=== PATIENT | female | born 1950 | race Caucasian/White ===

== ENCOUNTER 2018-05-22 17:45 | Inpatient (IN) ==
[2018-05-22] MEDS ORDERED: ONDANSETRON 4 MG/2 ML VIAL IV STA (18:05)
[2018-05-22] MEDS ORDERED: SODIUM CHLORIDE 0.9% 1,000 ML IV STA ×2 (18:05→19:45)
[2018-05-22] MEDS ORDERED: KETOROLAC 30 MG/1 ML VIAL IV STA (18:25)
[2018-05-22 18:56] LABS: Alanine Aminotransferase 13 U/L (13-56); Albumin 2.8 G/DL (3.4-5.0); Alkaline Phosphatase 58 U/L (45-117); Aspartate Amino Transferase 15 U/L (0-37); Bilirubin,Total < 0.39 MG/DL (0.2-1.0); Blood Urea Nitrogen 21 MG/DL (7-18); Calcium 8.9 MG/DL (8.5-10.1); Glucose 161 MG/DL (74-106); Osmolality,Calculated 275.1 MOS/KG (273-304); Potassium 3.6 MMOL/L (3.5-5.1); Sodium 135 MMOL/L (136-145); Total Protein 6.8 G/DL (6.4-8.3)
[2018-05-22 19:30] LABS: Basophils # 0.1 10*3/uL (0.0-0.2); Basophils % 0.3 % (0.0-0.8); Eosinophils # 0.3 10*3/uL (0.0-0.87); Eosinophils % 1.4 % (0.00-10.9); Hematocrit 40.6 VOL% (35.7-47.0); Hemoglobin 13.2 GM/DL (12.0-16.0); Immature Granulocytes % 0.4 %; Immature Granulocytes Absolute 0.08 #; Lymphocytes # 4.3 10*3/uL (1.4-4.0); Lymphocytes % 20.3 % (21.3-54.2); Mean Corpuscular HGB Conc 32.5 GM/DL (32-36); Mean Corpuscular Hemoglobin 29 PG (27-34); Mean Corpuscular Volume 90.2 FL (87-102); Mean Platelet Volume 10.6 FL (9.6-12.0); Monocytes % 4.5 % (1.7-12.7); Neutrophils # 15.5 10*3/uL (1.4-7.4); Neutrophils % 73.1 % (38.7-73.9); Platelet Count 358 T/CUMM (130-400); Red Cell Distribution Width 13.2 % (9.3-17.3); White Blood Count 21.2 T/CUMM (4-12)
[2018-05-22] MEDS ORDERED: VANCOMYCIN INJ 1,000 MG in SODIUM CHLORIDE 0.9% 250 ML IV STA (19:46)
[2018-05-22] MEDS ORDERED: CEFEPIME 2,000 MG in SODIUM CHLORIDE 0.9% 100 ML IV STA (19:47)
[2018-05-22] MEDS ORDERED: CEFEPIME 2,000 MG VIAL ONE (19:54)
[2018-05-22] MEDS ORDERED: DEXTROSE 50% 25 GM/50 ML VIAL IV PRN (19:55)
[2018-05-22] MEDS ORDERED: ACETAMINOPHEN 325 MG TABLET PO PRN (19:55)
[2018-05-22] MEDS ORDERED: GLUCAGON 1 MG VIAL IM PRN (19:55)
[2018-05-22] MEDS ORDERED: ONDANSETRON 4 MG/2 ML VIAL IV PRN (19:55)
[2018-05-22 19:58] LABS: Band Neutrophils 5 % (0-10); Eosinophils 2 % (0-10); Lymphocytes 22 % (20-55); Segmented Neutrophils 67 % (50-85); Total Cells Counted 100
[2018-05-22 20:00] LABS: Platelet Estimate Normal
[2018-05-22] MEDS ORDERED: MAGNESIUM SULF RIDER 1 GM in PREMIX 1 EACH IV STA (20:18)
[2018-05-22] MEDS: ZALEPLON 5 MG CAPSULE PO SCH (23:36)
[2018-05-22] MEDS: SODIUM CHLORIDE 0.9% 1,000 ML IV SCH (23:36)
[2018-05-22] MEDS: DOCUSATE SODIUM 100 MG CAPSULE PO SCH (23:36)
[2018-05-23] MEDS ORDERED: cefTRIAXone 500 MG in SYRINGE 1 EACH IV SCH
[2018-05-23] MEDS: SODIUM CHLORIDE 0.9% 1,000 ML IV SCH ×3 (01:31→17:14)
[2018-05-23 04:54] LABS: Apearance,Urine CLOUDY (Clear); Bacteria,Urine Occasional /HPF (Few); Bilirubin,Urine Negative (Negative); Blood, Urine Negative (Negative); Glucose,Urine (UA) Negative (Negative); Ketones,Urine Negative (Negative); Mucus,Urine Occasional /LPF (Occasional); Nitrite,Urine Positive (Negative); Protein,Urine Negative; RBC,Urine 2 /HPF (0-4); Squamous Epithelial Cell,Urine Many /HPF (0-10); Urine Specific Gravity 1.023 (1.001-1.035)
[2018-05-23 04:55] LABS: Hyaline Casts,Urine 7 /LPF (0-3); WBC,Urine 2 /HPF (0-6)
[2018-05-23 05:00] LABS: Urine Color Orange (Yellow)
[2018-05-23 05:01] LABS: Alanine Aminotransferase 12 U/L (13-56); Albumin 2.5 G/DL (3.4-5.0); Alkaline Phosphatase 52 U/L (45-117); Aspartate Amino Transferase 9 U/L (0-37); Bilirubin,Total < 0.39 MG/DL (0.2-1.0); Blood Urea Nitrogen 20 MG/DL (7-18); Calcium 8.2 MG/DL (8.5-10.1); Glucose 134 MG/DL (74-106); Potassium 3.8 MMOL/L (3.5-5.1); Sodium 136 MMOL/L (136-145); Total Protein 6.2 G/DL (6.4-8.3)
[2018-05-23 05:27] LABS: Basophils # 0.1 10*3/uL (0.0-0.2); Basophils % 0.4 % (0.0-0.8); Eosinophils # 0.2 10*3/uL (0.0-0.87); Eosinophils % 1.3 % (0.00-10.9); Hematocrit 33.7 VOL% (35.7-47.0); Hemoglobin 10.9 GM/DL (12.0-16.0); Immature Granulocytes % 0.4 %; Immature Granulocytes Absolute 0.07 #; Lymphocytes # 4.1 10*3/uL (1.4-4.0); Lymphocytes % 25.4 % (21.3-54.2); Mean Corpuscular HGB Conc 32.3 GM/DL (32-36); Mean Corpuscular Hemoglobin 29 PG (27-34); Mean Corpuscular Volume 90.8 FL (87-102); Mean Platelet Volume 10.3 FL (9.6-12.0); Monocytes # 0.9 10*3/uL (0.11-0.8); Monocytes % 5.3 % (1.7-12.7); Neutrophils # 10.9 10*3/uL (1.4-7.4); Neutrophils % 67.2 % (38.7-73.9); Platelet Count 310 T/CUMM (130-400); Red Blood Count 3.71 MC/CUMM (3.8-5.5); Red Cell Distribution Width 13.2 % (9.3-17.3); White Blood Count 16.2 T/CUMM (4-12)
[2018-05-23] MEDS ORDERED: MAGNESIUM SULF RIDER 2 GM in PREMIX 1 EACH IV PRN (06:19)
[2018-05-23 08:07] LABS: Hepatitis A Ab IgM Quant 0.15 Index; Hepatitis A Ab IgM Result Negative (Negative); Hepatitis B Core IgM Quant 0.09 Index; Hepatitis B Core IgM Result Negative (Negative); Hepatitis B Surface Ag Quant < 0.10 Index; Hepatitis B Surface Ag Result Negative (Negative); Hepatitis C Virus Ab Quant < 0.02 Index; Hepatitis C Virus Ab Result Negative (Negative)
[2018-05-23] MEDS: DOCUSATE SODIUM 100 MG CAPSULE PO SCH ×2 (08:29→20:49)
[2018-05-23] MEDS: CIPROFLOXACIN INJ 400 MG in PREMIX 1 EACH IV SCH ×2 (08:35→20:49)
[2018-05-23] MEDS: PANTOPRAZOLE 40 MG TABLET PO SCH ×2 (08:45→20:49)
[2018-05-23] MEDS ORDERED: tiZANidine 4 MG TABLET PO PRN (09:00)
[2018-05-23] MEDS ORDERED: FUROSEMIDE 40 MG TABLET PO SCH (09:00)
[2018-05-23] MEDS ORDERED: PANTOPRAZOLE 40 MG TABLET PO SCH (09:00)
[2018-05-23] MEDS: MAGNESIUM CHLORIDE 64 MG TABLET PO SCH (09:33)
[2018-05-23] MEDS: LEVOTHYROXINE 88 MCG TABLET PO SCH (09:33)
[2018-05-23] MEDS: ENOXAPARIN 40 MG/0.4 ML SYRINGE SUBCUT SCH (09:33)
[2018-05-23] MEDS: HYDROmorphone 2 MG/1 ML VIAL SUBCUT PRN ×2 (09:35→20:09)
[2018-05-23] MEDS: metroNIDAZOLE INJ 500 MG in PREMIX 1 EACH IV SCH ×2 (09:45→16:10)
[2018-05-23] MEDS: tiZANidine 4 MG TABLET PO PRN (20:10)
[2018-05-23] MEDS: ZALEPLON 5 MG CAPSULE PO SCH (20:49)
[2018-05-23] MEDS: AMITRIPTYLINE 100 MG TABLET PO SCH (20:49)
[2018-05-23] MEDS ORDERED: NON-FORMULARY MEDICATION (Zolpidem Tartrate [Ambien] 10 MG) PO SCH (21:00)
[2018-05-23] MEDS: NIFEdipine 10 MG CAPSULE PO SCH (21:42)
[2018-05-24] MEDS: metroNIDAZOLE INJ 500 MG in PREMIX 1 EACH IV SCH ×3 (00:53→16:51)
[2018-05-24] MEDS: SODIUM CHLORIDE 0.9% 1,000 ML IV SCH ×4 (00:53→21:42)
[2018-05-24 05:22] LABS: Basophils % 0.3 % (0.0-0.8); Eosinophils # 0.2 10*3/uL (0.0-0.87); Eosinophils % 2.4 % (0.00-10.9); Hematocrit 28.7 VOL% (35.7-47.0); Hemoglobin 8.8 GM/DL (12.0-16.0); Immature Granulocytes % 0.2 %; Immature Granulocytes Absolute 0.02 #; Lymphocytes # 3.7 10*3/uL (1.4-4.0); Lymphocytes % 40.1 % (21.3-54.2); Mean Corpuscular HGB Conc 30.7 GM/DL (32-36); Mean Corpuscular Hemoglobin 29 PG (27-34); Mean Corpuscular Volume 94.4 FL (87-102); Mean Platelet Volume 9.9 FL (9.6-12.0); Monocytes # 0.8 10*3/uL (0.11-0.8); Monocytes % 8.2 % (1.7-12.7); Neutrophils # 4.5 10*3/uL (1.4-7.4); Neutrophils % 48.8 % (38.7-73.9); Platelet Count 242 T/CUMM (130-400); Red Blood Count 3.04 MC/CUMM (3.8-5.5); Red Cell Distribution Width 13.2 % (9.3-17.3); White Blood Count 9.2 T/CUMM (4-12)
[2018-05-24 05:35] LABS: Calcium 7.5 MG/DL (8.5-10.1); Osmolality,Calculated 278.4 MOS/KG (273-304); Potassium 3.3 MMOL/L (3.5-5.1)
[2018-05-24] MEDS: NIFEdipine 10 MG CAPSULE PO SCH (06:02)
[2018-05-24 09:08] LABS: % Iron Saturation 17.4 % (18-50); Ferritin 25.9 ng/ml (8-252)
[2018-05-24] MEDS ORDERED: cloNIDine 0.1 MG TABLET PO PRN (09:21)
[2018-05-24] MEDS: PANTOPRAZOLE 40 MG TABLET PO SCH ×2 (10:16→21:41)
[2018-05-24] MEDS: ENOXAPARIN 40 MG/0.4 ML SYRINGE SUBCUT SCH (10:16)
[2018-05-24] MEDS: MAGNESIUM CHLORIDE 64 MG TABLET PO SCH (10:16)
[2018-05-24] MEDS: DOCUSATE SODIUM 100 MG CAPSULE PO SCH ×2 (10:16→21:41)
[2018-05-24] MEDS: LEVOTHYROXINE 88 MCG TABLET PO SCH (10:17)
[2018-05-24] MEDS: POTASSIUM CHLORIDE 20 MEQ TABLET PO PRN ×3 (10:17→14:58)
[2018-05-24] MEDS: METOPROLOL SUCCINATE XL 100 MG TABLET PO SCH ×2 (10:17→21:41)
[2018-05-24] MEDS: CIPROFLOXACIN INJ 400 MG in PREMIX 1 EACH IV SCH ×2 (10:40→21:41)
[2018-05-24] MEDS ORDERED: SIMETHICONE CHEW 125 MG TABLET PO PRN (11:08)
[2018-05-24] MEDS ORDERED: DEXTROSE 50% 25 GM/50 ML VIAL IV PRN (18:54)
[2018-05-24] MEDS ORDERED: GLUCAGON 1 MG VIAL IM PRN (18:54)
[2018-05-24] MEDS: ZALEPLON 5 MG CAPSULE PO SCH (21:41)
[2018-05-24] MEDS: AMITRIPTYLINE 100 MG TABLET PO SCH (21:41)
[2018-05-24] MEDS: tiZANidine 4 MG TABLET PO PRN (23:07)
[2018-05-25] MEDS: metroNIDAZOLE INJ 500 MG in PREMIX 1 EACH IV SCH ×3 (01:38→18:38)
[2018-05-25 05:01] LABS: Basophils % 0.4 % (0.0-0.8); Eosinophils # 0.2 10*3/uL (0.0-0.87); Hematocrit 27.4 VOL% (35.7-47.0); Hemoglobin 8.5 GM/DL (12.0-16.0); Immature Granulocytes % 0.4 %; Immature Granulocytes Absolute 0.04 #; Lymphocytes # 3.9 10*3/uL (1.4-4.0); Lymphocytes % 38.2 % (21.3-54.2); Mean Corpuscular Hemoglobin 29 PG (27-34); Mean Corpuscular Volume 93.8 FL (87-102); Mean Platelet Volume 10.1 FL (9.6-12.0); Monocytes # 0.8 10*3/uL (0.11-0.8); Monocytes % 7.9 % (1.7-12.7); Neutrophils # 5.2 10*3/uL (1.4-7.4); Neutrophils % 51.1 % (38.7-73.9); Platelet Count 234 T/CUMM (130-400); Red Blood Count 2.92 MC/CUMM (3.8-5.5); Red Cell Distribution Width 13.2 % (9.3-17.3); White Blood Count 10.2 T/CUMM (4-12)
[2018-05-25 05:21] LABS: Calcium 7.3 MG/DL (8.5-10.1); Osmolality,Calculated 279.4 MOS/KG (273-304); Potassium 3.9 MMOL/L (3.5-5.1)
[2018-05-25] MEDS: DOCUSATE SODIUM 100 MG CAPSULE PO SCH ×2 (10:26→21:55)
[2018-05-25] MEDS: ENOXAPARIN 40 MG/0.4 ML SYRINGE SUBCUT SCH (10:26)
[2018-05-25] MEDS: MAGNESIUM CHLORIDE 64 MG TABLET PO SCH (10:26)
[2018-05-25] MEDS: LEVOTHYROXINE 88 MCG TABLET PO SCH (10:26)
[2018-05-25] MEDS: FUROSEMIDE 20 MG TABLET PO SCH (10:26)
[2018-05-25] MEDS: PANTOPRAZOLE 40 MG TABLET PO SCH ×2 (10:26→21:56)
[2018-05-25] MEDS: METOPROLOL SUCCINATE XL 100 MG TABLET PO SCH ×2 (10:27→21:56)
[2018-05-25] MEDS: CIPROFLOXACIN INJ 400 MG in PREMIX 1 EACH IV SCH (10:33)
[2018-05-25] MEDS: AMITRIPTYLINE 100 MG TABLET PO SCH (21:55)
[2018-05-25] MEDS: CIPROFLOXACIN 500 MG TABLET PO SCH (21:55)
[2018-05-25] MEDS: metroNIDAZOLE 500 MG TABLET PO SCH (21:56)
[2018-05-25] MEDS: ZALEPLON 5 MG CAPSULE PO SCH (21:56)
[2018-05-26 04:12] LABS: Basophils % 0.3 % (0.0-0.8); Eosinophils # 0.3 10*3/uL (0.0-0.87); Eosinophils % 2.4 % (0.00-10.9); Hematocrit 27.1 VOL% (35.7-47.0); Hemoglobin 8.6 GM/DL (12.0-16.0); Immature Granulocytes % 0.3 %; Immature Granulocytes Absolute 0.04 #; Lymphocytes # 4.3 10*3/uL (1.4-4.0); Mean Corpuscular HGB Conc 31.7 GM/DL (32-36); Mean Corpuscular Hemoglobin 29 PG (27-34); Mean Corpuscular Volume 92.5 FL (87-102); Mean Platelet Volume 9.7 FL (9.6-12.0); Monocytes # 0.8 10*3/uL (0.11-0.8); Neutrophils # 6.1 10*3/uL (1.4-7.4); Platelet Count 239 T/CUMM (130-400); Red Blood Count 2.93 MC/CUMM (3.8-5.5); Red Cell Distribution Width 13.2 % (9.3-17.3); White Blood Count 11.5 T/CUMM (4-12)
[2018-05-26 04:32] LABS: Calcium 7.4 MG/DL (8.5-10.1); Potassium 3.7 MMOL/L (3.5-5.1)
[2018-05-26] MEDS: metroNIDAZOLE 500 MG TABLET PO SCH (10:02)
[2018-05-26] MEDS: MAGNESIUM CHLORIDE 64 MG TABLET PO SCH (10:02)
[2018-05-26] MEDS: LEVOTHYROXINE 88 MCG TABLET PO SCH (10:02)
[2018-05-26] MEDS: FUROSEMIDE 20 MG TABLET PO SCH (10:02)
[2018-05-26] MEDS: METOPROLOL SUCCINATE XL 100 MG TABLET PO SCH (10:02)
[2018-05-26] MEDS: PANTOPRAZOLE 40 MG TABLET PO SCH (10:03)
[2018-05-26] MEDS: POTASSIUM CHLORIDE 20 MEQ TABLET PO PRN (10:03)
[2018-05-26] MEDS: CIPROFLOXACIN 500 MG TABLET PO SCH (10:03)
[2018-05-26] MEDS: ENOXAPARIN 40 MG/0.4 ML SYRINGE SUBCUT SCH (10:04)
[2018-05-26] MEDS: DOCUSATE SODIUM 100 MG CAPSULE PO SCH (10:04)
[2018-05-26 12:33] VITALS: BP 122/72
== END 2018-05-26 12:57 | disposition home or self-care (01) | DRG 683 ==
LOC: N.ED 17:45 → N.EDINP 17:45 → N.TELEN 20:17
PROVIDERS: ADMIT Internal Medicine; ATTEND Internal Medicine